=== PATIENT | male | born 1990 | race Caucasian/White ===

== ENCOUNTER → 2021-12-08 | Outpatient (CLI) | payer OTHER ==
--- NOTE | 2021-12-08 14:31 | XR ---
Right HISTORY: Pain 2 views of the toes are submitted. The fifth toe is not included on the frontal view. Degenerative changes present at the first metatarsophalangeal joint. Bone mineralization and alignmen t are maintained. There is no periostitis to suggest osteomyelitis. No fracture or dislocation. IMPRESSION: No acute abnormality, MRI may be of benefit
== END | disposition home or self-care (01) ==
LOC: RADXRYALE 13:41
PROVIDERS: ATTEND Physician Assistant
DX: M79.674 Pain in right toe(s) (principal)

== ENCOUNTER → 2023-08-16 | Outpatient (CLI) | payer OTHER ==
--- NOTE | 2023-08-16 16:39 | XR ---
EXAMINATION TYPE: XR finger RT DATE OF EXAM: 08/16/2023 3:50 PM CLINICAL INDICATION:Male, 33 years old with history of [id number] RT FINGER PAIN; [facility] COMPARISON: None TECHNIQUE: XR finger RT Frontal, lateral and oblique views were obtained. FINDINGS: Normal alignment of the visualized joints. No acute osseous pathology is identified. No e vidence of soft tissue swelling. The metacarpal phalangeal joint of the first digit appears intact. IMPRESSION: No acute osseous pathology. The first metacarpophalangeal joint appears intact. Consider evaluation w ith MRI if pain persists.
== END | disposition home or self-care (01) ==
LOC: RADXRYALE 15:41
PROVIDERS: ATTEND Physician Assistant Medical
DX: M79.644 Pain in right finger(s) (principal)